=== PATIENT | male | born 1955 | race African-American/Black ===

== ENCOUNTER 2023-05-23 08:43 | Inpatient (IN) | payer OTHER ==
[2023-05-23 09:27] VITALS: BMI 31.1
[2023-05-23] MEDS ORDERED: AMMONIUM LACTATE 12% LOTION 225 GM BOTTLE TP PRN (09:57)
[2023-05-23] MEDS ORDERED: MAGNESIUM HYDROX 2400MG/30ML ORAL SUSPENSION 30 ML CUP PO PRN (09:57)
[2023-05-23] MEDS ORDERED: COLLOIDAL OATMEAL 1 BAR EACH TP PRN (09:57)
[2023-05-23] MEDS ORDERED: POLYETHYLENE GLYCOL (HEALTHYLAX) 3350 17 GM PACKET PO PRN (09:57)
[2023-05-23] MEDS ORDERED: BENZOCAINE/MENTHOL (CHLORASEPTIC ) LOZENGE MM PRN (09:57)
[2023-05-23] MEDS ORDERED: guaiFENesin 600 MG TABLET.ER (FP) PO PRN (09:57)
[2023-05-23] MEDS ORDERED: ACETAMINOPHEN 325 MG TABLET (FP) PO PRN (09:57)
[2023-05-23] MEDS ORDERED: hydrOXYzine PAMOATE 25 MG CAPSULE (FP) PO PRN (09:57)
[2023-05-23] MEDS ORDERED: NICOTINE POLACRILEX 2 MG GUM BUC PRN (09:57)
[2023-05-23] MEDS ORDERED: MAG HYDROX/AL HYDROX/SIMETH 30 ML UNIT-DOSE CUP PO PRN (09:57)
[2023-05-23] MEDS ORDERED: NALOXONE HCL 0.4 MG/ML VIAL IM PRN (09:57)
[2023-05-23] MEDS ORDERED: LOPERAMIDE HCL 2 MG CAPSULE PO PRN (09:57)
[2023-05-23] MEDS ORDERED: NALOXONE HCL (KLOXXADO) 8 MG SPRAY NS PRN (09:57)
[2023-05-23] MEDS ORDERED: BENZONATATE 200 MG CAPSULE PO PRN (09:57)
[2023-05-23] MEDS ORDERED: PRENATAL VITAMINS W/ FOLIC ACID TABLET (FP) PO ONE (11:33)
[2023-05-23] MEDS: PRENATAL VITAMINS W/ FOLIC ACID TABLET (FP) PO SCH (11:36)
[2023-05-23 13:39] LABS: HEMATOCRIT 28.9 % (35.4-49); HEMOGLOBIN 9.7 GM/dL (11.7-16.9); MCH 33.3 pg (25.7-33.7); MCHC 33.7 g/dl (32.0-35.9); MEAN PLT VOLUME 7.6 fl (7.5-11.1); PLATELET COUNT 361 10^3/uL (134-434); RBC 2.92 M/mm3 (4.00-5.60); RDW 14.5 % (11.9-15.9)
[2023-05-23 13:46] LABS: POTASSIUM 4.1 mmol/L (3.5-5.1)
[2023-05-23 13:52] LABS: BLOOD UREA NITROGEN 11.1 mg/dL (7-18); CALCIUM 8.4 mg/dL (8.5-10.1)
[2023-05-23 13:57] LABS: TOT PROT 6.8 g/dl (6.4-8.2)
[2023-05-23 14:48] LABS: SYPHILIS W/ RPR CONF REACTIVE (NONREACTIVE)
[2023-05-23 18:58] LABS: EPI CELLS 17 /uL (0-25.1); HYALINE CASTS 5 /uL (0-3.1); PH,URINE 5.5 (5.0-8.0); URINE APPEARANCE TURBID; URINE BACTERIA 64 /uL (0-1359); URINE BILIRUBIN 1+ (NEGATIVE); URINE COLOR ORANGE; URINE GLUCOSE (UA) NEGATIVE (NEGATIVE); URINE KETONE TRACE (NEGATIVE); URINE LEUK ESTERASE NEGATIVE (NEGATIVE); URINE NITRITE NEGATIVE (NEGATIVE); URINE PROTEIN 1+ (NEGATIVE); URINE RBC 17 /uL (0-23.9); URINE WBC 45 /uL (0-25.8)
[2023-05-23] MEDS: MELATONIN 5 MG TABLETS PO SCH (21:39)
[2023-05-23] MEDS: THIAMINE HCL 100 MG TABLET (FP) PO SCH (21:39)
[2023-05-23] MEDS: ATORVASTATIN CA 10 MG TABLET (FP) PO SCH (21:39)
[2023-05-23] MEDS: ALLOPURINOL 100 MG TABLET (FP) PO SCH (21:39)
[2023-05-23] MEDS: MUPIROCIN 2% TOPICAL OINTMENT 22 GM TUBE TP SCH (22:45)
[2023-05-24] MEDS ORDERED: FENOFIBRIC ACID 45 MG CAP PO SCH (10:00)
[2023-05-24] MEDS ORDERED: PATIENT'S OWN MEDICATION (NON-FORMULARY) (Lisinopril/Hydrochlorothiazide [Lisinopril-Hctz PO SCH (10:00)
[2023-05-24] MEDS ORDERED: TUBERCULIN PPD 5 TU/0.1ML SYRINGE (IN PATIENT USE ONLY) ID ONE (10:00)
[2023-05-24] MEDS: ALLOPURINOL 100 MG TABLET (FP) PO SCH ×2 (10:34→21:27)
[2023-05-24] MEDS: FENOFIBRIC ACID 45 MG CAP PO SCH (10:35)
[2023-05-24] MEDS: PRENATAL VITAMINS W/ FOLIC ACID TABLET (FP) PO SCH (10:36)
[2023-05-24] MEDS: HYDROCHLOROTHIAZIDE 12.5 MG CAPSULE (FP) PO SCH (10:36)
[2023-05-24] MEDS: LISINOPRIL 20 MG TABLET PO SCH (10:38)
[2023-05-24] MEDS: MUPIROCIN 2% TOPICAL OINTMENT 22 GM TUBE TP SCH ×2 (10:38→21:27)
[2023-05-24] MEDS ORDERED: TUBERCULIN PPD 5 TU/0.1ML VIAL ID ONE (10:41)
[2023-05-24] MEDS: ATORVASTATIN CA 10 MG TABLET (FP) PO SCH (21:26)
[2023-05-24] MEDS: THIAMINE HCL 100 MG TABLET (FP) PO SCH (21:26)
[2023-05-24] MEDS: MELATONIN 5 MG TABLETS PO SCH (21:27)
[2023-05-25] MEDS: MUPIROCIN 2% TOPICAL OINTMENT 22 GM TUBE TP SCH ×2 (10:15→21:13)
[2023-05-25] MEDS: PRENATAL VITAMINS W/ FOLIC ACID TABLET (FP) PO SCH (10:16)
[2023-05-25] MEDS: HYDROCHLOROTHIAZIDE 12.5 MG CAPSULE (FP) PO SCH (10:16)
[2023-05-25] MEDS: LISINOPRIL 20 MG TABLET PO SCH (10:16)
[2023-05-25] MEDS: FENOFIBRIC ACID 45 MG CAP PO SCH (10:17)
[2023-05-25] MEDS: ALLOPURINOL 100 MG TABLET (FP) PO SCH ×2 (10:17→21:15)
[2023-05-25] MEDS ORDERED: LACTULOSE 20 GM/30 ML UDC (FOR ORAL USE ONLY) PO ONE (10:56)
[2023-05-25] MEDS ORDERED: DOCUSATE SODIUM 100 MG CAPSULE (FP) PO SCH (11:00)
[2023-05-25] MEDS: SULFAMETHOXAZOLE/TRIMETHOPRIM 800MG/160MG D.S. TABLET PO SCH ×2 (11:37→21:13)
[2023-05-25] MEDS: LIDOCAINE 5% TOPICAL PATCH TP SCH (11:37)
[2023-05-25] MEDS ORDERED: BACLOFEN 10 MG TABLET (FP) PO SCH (14:00)
[2023-05-25] MEDS ORDERED: PENICILLIN G BENZATHINE 2,400,000 UNIT/4 ML PFS IM ONE (18:00)
[2023-05-25] MEDS: MELATONIN 5 MG TABLETS PO SCH (21:12)
[2023-05-25] MEDS: THIAMINE HCL 100 MG TABLET (FP) PO SCH (21:12)
[2023-05-25] MEDS: ATORVASTATIN CA 10 MG TABLET (FP) PO SCH (21:13)
[2023-05-25] MEDS: BACLOFEN 10 MG TABLET (FP) PO PRN (21:13)
[2023-05-25] MEDS: LIDOCAINE PATCH REMOVAL MC SCH (21:14)
[2023-05-26] MEDS: LISINOPRIL 20 MG TABLET PO SCH (10:02)
[2023-05-26] MEDS: HYDROCHLOROTHIAZIDE 12.5 MG CAPSULE (FP) PO SCH (10:02)
[2023-05-26] MEDS: FENOFIBRIC ACID 45 MG CAP PO SCH (10:02)
[2023-05-26] MEDS: ALLOPURINOL 100 MG TABLET (FP) PO SCH ×2 (10:02→21:20)
[2023-05-26] MEDS: SULFAMETHOXAZOLE/TRIMETHOPRIM 800MG/160MG D.S. TABLET PO SCH ×2 (10:03→21:20)
[2023-05-26] MEDS: MUPIROCIN 2% TOPICAL OINTMENT 22 GM TUBE TP SCH ×2 (10:03→21:50)
[2023-05-26] MEDS: LIDOCAINE 5% TOPICAL PATCH TP SCH (10:04)
[2023-05-26] MEDS: PRENATAL VITAMINS W/ FOLIC ACID TABLET (FP) PO SCH (10:04)
[2023-05-26] MEDS: FERROUS SO4 325 MG TABLET (FP) PO SCH (10:05)
[2023-05-26 11:07] LABS: INR 1.24 (0.83-1.09); PROTHROMBIN TIME (PATIENT) 14.4 SEC (9.7-13.0)
[2023-05-26 11:28] LABS: MAGNESIUM 1.5 mg/dL (1.8-2.4)
[2023-05-26] MEDS: MAGNESIUM OXIDE 400 MG TABLET (FP) PO SCH (18:28)
[2023-05-26] MEDS: THIAMINE HCL 100 MG TABLET (FP) PO SCH (21:20)
[2023-05-26] MEDS: MELATONIN 5 MG TABLETS PO SCH (21:20)
[2023-05-26] MEDS: ATORVASTATIN CA 10 MG TABLET (FP) PO SCH (21:20)
[2023-05-26] MEDS: LIDOCAINE PATCH REMOVAL MC SCH (21:49)
[2023-05-27] MEDS: FERROUS SO4 325 MG TABLET (FP) PO SCH (08:53)
[2023-05-27] MEDS: HYDROCHLOROTHIAZIDE 12.5 MG CAPSULE (FP) PO SCH (09:55)
[2023-05-27] MEDS: LISINOPRIL 20 MG TABLET PO SCH (09:55)
[2023-05-27] MEDS: LIDOCAINE 5% TOPICAL PATCH TP SCH (09:55)
[2023-05-27] MEDS: MAGNESIUM OXIDE 400 MG TABLET (FP) PO SCH (09:55)
[2023-05-27] MEDS: FENOFIBRIC ACID 45 MG CAP PO SCH (09:55)
[2023-05-27] MEDS: ALLOPURINOL 100 MG TABLET (FP) PO SCH ×2 (09:55→21:10)
[2023-05-27] MEDS: SULFAMETHOXAZOLE/TRIMETHOPRIM 800MG/160MG D.S. TABLET PO SCH ×2 (09:55→21:10)
[2023-05-27] MEDS: MUPIROCIN 2% TOPICAL OINTMENT 22 GM TUBE TP SCH ×2 (09:56→21:11)
[2023-05-27] MEDS: PRENATAL VITAMINS W/ FOLIC ACID TABLET (FP) PO SCH (09:56)
[2023-05-27] MEDS: ATORVASTATIN CA 10 MG TABLET (FP) PO SCH (21:10)
[2023-05-27] MEDS: MELATONIN 5 MG TABLETS PO SCH (21:10)
[2023-05-27] MEDS: THIAMINE HCL 100 MG TABLET (FP) PO SCH (21:10)
[2023-05-27] MEDS: LIDOCAINE PATCH REMOVAL MC SCH (21:10)
[2023-05-28] MEDS: FERROUS SO4 325 MG TABLET (FP) PO SCH (08:03)
[2023-05-28] MEDS: LIDOCAINE 5% TOPICAL PATCH TP SCH (10:29)
[2023-05-28] MEDS: MUPIROCIN 2% TOPICAL OINTMENT 22 GM TUBE TP SCH ×2 (10:29→21:42)
[2023-05-28] MEDS: ALLOPURINOL 100 MG TABLET (FP) PO SCH ×2 (10:30→21:41)
[2023-05-28] MEDS: HYDROCHLOROTHIAZIDE 12.5 MG CAPSULE (FP) PO SCH (10:30)
[2023-05-28] MEDS: SULFAMETHOXAZOLE/TRIMETHOPRIM 800MG/160MG D.S. TABLET PO SCH ×2 (10:30→21:42)
[2023-05-28] MEDS: FENOFIBRIC ACID 45 MG CAP PO SCH (10:30)
[2023-05-28] MEDS: MAGNESIUM OXIDE 400 MG TABLET (FP) PO SCH (10:30)
[2023-05-28] MEDS: LISINOPRIL 20 MG TABLET PO SCH (10:30)
[2023-05-28] MEDS: PRENATAL VITAMINS W/ FOLIC ACID TABLET (FP) PO SCH (10:31)
[2023-05-28] MEDS: MELATONIN 5 MG TABLETS PO SCH (21:10)
[2023-05-28] MEDS: THIAMINE HCL 100 MG TABLET (FP) PO SCH (21:41)
[2023-05-28] MEDS: ATORVASTATIN CA 10 MG TABLET (FP) PO SCH (21:42)
[2023-05-28] MEDS: LIDOCAINE PATCH REMOVAL MC SCH (23:13)
[2023-05-29] MEDS: FERROUS SO4 325 MG TABLET (FP) PO SCH (07:18)
[2023-05-29] MEDS: ALLOPURINOL 100 MG TABLET (FP) PO SCH ×2 (10:04→21:14)
[2023-05-29] MEDS: MUPIROCIN 2% TOPICAL OINTMENT 22 GM TUBE TP SCH ×2 (10:04→21:13)
[2023-05-29] MEDS: MAGNESIUM OXIDE 400 MG TABLET (FP) PO SCH (10:05)
[2023-05-29] MEDS: HYDROCHLOROTHIAZIDE 12.5 MG CAPSULE (FP) PO SCH (10:05)
[2023-05-29] MEDS: SULFAMETHOXAZOLE/TRIMETHOPRIM 800MG/160MG D.S. TABLET PO SCH ×2 (10:06→21:14)
[2023-05-29] MEDS: LISINOPRIL 20 MG TABLET PO SCH (10:06)
[2023-05-29] MEDS: FENOFIBRIC ACID 45 MG CAP PO SCH (10:07)
[2023-05-29] MEDS: PRENATAL VITAMINS W/ FOLIC ACID TABLET (FP) PO SCH (10:07)
[2023-05-29] MEDS: LIDOCAINE 5% TOPICAL PATCH TP SCH (10:07)
[2023-05-29] MEDS: MELATONIN 5 MG TABLETS PO SCH (21:13)
[2023-05-29] MEDS: THIAMINE HCL 100 MG TABLET (FP) PO SCH (21:13)
[2023-05-29] MEDS: LIDOCAINE PATCH REMOVAL MC SCH (21:13)
[2023-05-29] MEDS: ATORVASTATIN CA 10 MG TABLET (FP) PO SCH (21:14)
[2023-05-30] MEDS: FERROUS SO4 325 MG TABLET (FP) PO SCH (07:13)
[2023-05-30] MEDS: MUPIROCIN 2% TOPICAL OINTMENT 22 GM TUBE TP SCH ×2 (10:03→21:07)
[2023-05-30] MEDS: SULFAMETHOXAZOLE/TRIMETHOPRIM 800MG/160MG D.S. TABLET PO SCH ×2 (10:03→21:06)
[2023-05-30] MEDS: HYDROCHLOROTHIAZIDE 12.5 MG CAPSULE (FP) PO SCH (10:04)
[2023-05-30] MEDS: MAGNESIUM OXIDE 400 MG TABLET (FP) PO SCH (10:04)
[2023-05-30] MEDS: LIDOCAINE 5% TOPICAL PATCH TP SCH (10:04)
[2023-05-30] MEDS: ALLOPURINOL 100 MG TABLET (FP) PO SCH ×2 (10:05→21:06)
[2023-05-30] MEDS: LISINOPRIL 20 MG TABLET PO SCH (10:05)
[2023-05-30] MEDS: PRENATAL VITAMINS W/ FOLIC ACID TABLET (FP) PO SCH (10:05)
[2023-05-30] MEDS: FENOFIBRIC ACID 45 MG CAP PO SCH (10:05)
[2023-05-30] MEDS: MELATONIN 5 MG TABLETS PO SCH (21:06)
[2023-05-30] MEDS: ATORVASTATIN CA 10 MG TABLET (FP) PO SCH (21:06)
[2023-05-30] MEDS: THIAMINE HCL 100 MG TABLET (FP) PO SCH (21:06)
[2023-05-30] MEDS: BACLOFEN 10 MG TABLET (FP) PO PRN (21:06)
[2023-05-30] MEDS: LIDOCAINE PATCH REMOVAL MC SCH (21:07)
[2023-05-31] MEDS: FERROUS SO4 325 MG TABLET (FP) PO SCH (07:05)
[2023-05-31] MEDS: MUPIROCIN 2% TOPICAL OINTMENT 22 GM TUBE TP SCH ×2 (10:05→21:15)
[2023-05-31] MEDS: MAGNESIUM OXIDE 400 MG TABLET (FP) PO SCH (10:06)
[2023-05-31] MEDS: SULFAMETHOXAZOLE/TRIMETHOPRIM 800MG/160MG D.S. TABLET PO SCH ×2 (10:06→21:13)
[2023-05-31] MEDS: FENOFIBRIC ACID 45 MG CAP PO SCH (10:06)
[2023-05-31] MEDS: ALLOPURINOL 100 MG TABLET (FP) PO SCH ×2 (10:06→21:13)
[2023-05-31] MEDS: PRENATAL VITAMINS W/ FOLIC ACID TABLET (FP) PO SCH (10:07)
[2023-05-31] MEDS: LIDOCAINE 5% TOPICAL PATCH TP SCH (10:07)
[2023-05-31] MEDS: HYDROCHLOROTHIAZIDE 12.5 MG CAPSULE (FP) PO SCH (10:10)
[2023-05-31] MEDS: LISINOPRIL 20 MG TABLET PO SCH (10:10)
[2023-05-31] MEDS: ATORVASTATIN CA 10 MG TABLET (FP) PO SCH (21:13)
[2023-05-31] MEDS: MELATONIN 5 MG TABLETS PO SCH (21:14)
[2023-05-31] MEDS: LIDOCAINE PATCH REMOVAL MC SCH (21:14)
[2023-05-31] MEDS: THIAMINE HCL 100 MG TABLET (FP) PO SCH (21:15)
[2023-06-01] MEDS: FERROUS SO4 325 MG TABLET (FP) PO SCH (07:03)
[2023-06-01] MEDS: SULFAMETHOXAZOLE/TRIMETHOPRIM 800MG/160MG D.S. TABLET PO SCH ×2 (09:55→21:18)
[2023-06-01] MEDS: MAGNESIUM OXIDE 400 MG TABLET (FP) PO SCH (09:56)
[2023-06-01] MEDS: LIDOCAINE 5% TOPICAL PATCH TP SCH (09:56)
[2023-06-01] MEDS: MUPIROCIN 2% TOPICAL OINTMENT 22 GM TUBE TP SCH ×2 (09:56→21:17)
[2023-06-01] MEDS: HYDROCHLOROTHIAZIDE 12.5 MG CAPSULE (FP) PO SCH (09:56)
[2023-06-01] MEDS: ALLOPURINOL 100 MG TABLET (FP) PO SCH ×2 (09:56→21:18)
[2023-06-01] MEDS: FENOFIBRIC ACID 45 MG CAP PO SCH (09:57)
[2023-06-01] MEDS: PRENATAL VITAMINS W/ FOLIC ACID TABLET (FP) PO SCH (09:57)
[2023-06-01] MEDS: LISINOPRIL 20 MG TABLET PO SCH (09:57)
[2023-06-01] MEDS ORDERED: PENICILLIN G BENZATHINE 2,400,000 UNIT/4 ML PFS IM ONE (10:00)
[2023-06-01] MEDS: MELATONIN 5 MG TABLETS PO SCH (21:17)
[2023-06-01] MEDS: THIAMINE HCL 100 MG TABLET (FP) PO SCH (21:17)
[2023-06-01] MEDS: LIDOCAINE PATCH REMOVAL MC SCH (21:17)
[2023-06-01] MEDS: ATORVASTATIN CA 10 MG TABLET (FP) PO SCH (21:18)
[2023-06-02] MEDS: IBUPROFEN 600 MG TABLET (FP) PO PRN (06:29)
[2023-06-02] MEDS: FERROUS SO4 325 MG TABLET (FP) PO SCH (07:03)
[2023-06-02] MEDS: PRENATAL VITAMINS W/ FOLIC ACID TABLET (FP) PO SCH (09:55)
[2023-06-02] MEDS: ALLOPURINOL 100 MG TABLET (FP) PO SCH ×2 (09:55→21:22)
[2023-06-02] MEDS: SULFAMETHOXAZOLE/TRIMETHOPRIM 800MG/160MG D.S. TABLET PO SCH ×2 (09:55→21:22)
[2023-06-02] MEDS: FENOFIBRIC ACID 45 MG CAP PO SCH (09:55)
[2023-06-02] MEDS: MUPIROCIN 2% TOPICAL OINTMENT 22 GM TUBE TP SCH ×2 (09:56→21:50)
[2023-06-02] MEDS: LIDOCAINE 5% TOPICAL PATCH TP SCH (09:56)
[2023-06-02] MEDS: MAGNESIUM OXIDE 400 MG TABLET (FP) PO SCH (09:57)
[2023-06-02] MEDS: HYDROCHLOROTHIAZIDE 12.5 MG CAPSULE (FP) PO SCH (09:57)
[2023-06-02] MEDS: LISINOPRIL 20 MG TABLET PO SCH (09:57)
[2023-06-02] MEDS: LACTULOSE 20 GM/30 ML UDC (FOR ORAL USE ONLY) PO PRN (10:08)
[2023-06-02] MEDS: ATORVASTATIN CA 10 MG TABLET (FP) PO SCH (21:22)
[2023-06-02] MEDS: THIAMINE HCL 100 MG TABLET (FP) PO SCH (21:22)
[2023-06-02] MEDS: IBUPROFEN 400 MG TABLET (FP) PO PRN (21:23)
[2023-06-02] MEDS: MELATONIN 5 MG TABLETS PO SCH (21:23)
[2023-06-02] MEDS: LIDOCAINE PATCH REMOVAL MC SCH (21:51)
[2023-06-03] MEDS: FERROUS SO4 325 MG TABLET (FP) PO SCH (07:18)
[2023-06-03] MEDS: SULFAMETHOXAZOLE/TRIMETHOPRIM 800MG/160MG D.S. TABLET PO SCH ×2 (09:54→21:12)
[2023-06-03] MEDS: MUPIROCIN 2% TOPICAL OINTMENT 22 GM TUBE TP SCH ×2 (09:54→21:12)
[2023-06-03] MEDS: HYDROCHLOROTHIAZIDE 12.5 MG CAPSULE (FP) PO SCH (09:55)
[2023-06-03] MEDS: LIDOCAINE 5% TOPICAL PATCH TP SCH (09:55)
[2023-06-03] MEDS: MAGNESIUM OXIDE 400 MG TABLET (FP) PO SCH (09:55)
[2023-06-03] MEDS: LISINOPRIL 20 MG TABLET PO SCH (09:55)
[2023-06-03] MEDS: FENOFIBRIC ACID 45 MG CAP PO SCH (09:56)
[2023-06-03] MEDS: PRENATAL VITAMINS W/ FOLIC ACID TABLET (FP) PO SCH (09:56)
[2023-06-03] MEDS: ALLOPURINOL 100 MG TABLET (FP) PO SCH ×2 (09:56→21:12)
[2023-06-03] MEDS: ATORVASTATIN CA 10 MG TABLET (FP) PO SCH (21:12)
[2023-06-03] MEDS: MELATONIN 5 MG TABLETS PO SCH (21:12)
[2023-06-03] MEDS: THIAMINE HCL 100 MG TABLET (FP) PO SCH (21:12)
[2023-06-03] MEDS: LIDOCAINE PATCH REMOVAL MC SCH (21:12)
[2023-06-03] MEDS: BACLOFEN 10 MG TABLET (FP) PO PRN (21:13)
[2023-06-04] MEDS: FERROUS SO4 325 MG TABLET (FP) PO SCH (07:04)
[2023-06-04] MEDS: FENOFIBRIC ACID 45 MG CAP PO SCH (09:41)
[2023-06-04] MEDS: MAGNESIUM OXIDE 400 MG TABLET (FP) PO SCH (09:41)
[2023-06-04] MEDS: LISINOPRIL 20 MG TABLET PO SCH (09:41)
[2023-06-04] MEDS: ALLOPURINOL 100 MG TABLET (FP) PO SCH ×2 (09:41→21:10)
[2023-06-04] MEDS: SULFAMETHOXAZOLE/TRIMETHOPRIM 800MG/160MG D.S. TABLET PO SCH ×2 (09:41→21:10)
[2023-06-04] MEDS: HYDROCHLOROTHIAZIDE 12.5 MG CAPSULE (FP) PO SCH (09:41)
[2023-06-04] MEDS: LIDOCAINE 5% TOPICAL PATCH TP SCH (09:43)
[2023-06-04] MEDS: MUPIROCIN 2% TOPICAL OINTMENT 22 GM TUBE TP SCH ×2 (09:43→21:10)
[2023-06-04] MEDS: PRENATAL VITAMINS W/ FOLIC ACID TABLET (FP) PO SCH (10:00)
[2023-06-04] MEDS: ATORVASTATIN CA 10 MG TABLET (FP) PO SCH (21:10)
[2023-06-04] MEDS: THIAMINE HCL 100 MG TABLET (FP) PO SCH (21:10)
[2023-06-04] MEDS: LIDOCAINE PATCH REMOVAL MC SCH (21:10)
[2023-06-04] MEDS: BACLOFEN 10 MG TABLET (FP) PO PRN (21:10)
[2023-06-04] MEDS: MELATONIN 5 MG TABLETS PO SCH (21:10)
[2023-06-05] MEDS: FERROUS SO4 325 MG TABLET (FP) PO SCH (07:10)
[2023-06-05] MEDS: MUPIROCIN 2% TOPICAL OINTMENT 22 GM TUBE TP SCH ×2 (10:28→21:17)
[2023-06-05] MEDS: LIDOCAINE 5% TOPICAL PATCH TP SCH (10:29)
[2023-06-05] MEDS: HYDROCHLOROTHIAZIDE 12.5 MG CAPSULE (FP) PO SCH (10:29)
[2023-06-05] MEDS: FENOFIBRIC ACID 45 MG CAP PO SCH (10:30)
[2023-06-05] MEDS: ALLOPURINOL 100 MG TABLET (FP) PO SCH ×2 (10:30→21:16)
[2023-06-05] MEDS: NALTREXONE HCL 50 MG TABLET PO SCH (10:31)
[2023-06-05] MEDS: PRENATAL VITAMINS W/ FOLIC ACID TABLET (FP) PO SCH (10:31)
[2023-06-05] MEDS: LISINOPRIL 20 MG TABLET PO SCH (10:33)
[2023-06-05] MEDS: CHOLECALCIFEROL (VIT D3) 400 UNIT (10 MCG) TABLET PO SCH (11:09)
[2023-06-05] MEDS: MAGNESIUM OXIDE 400 MG TABLET (FP) PO SCH (11:14)
[2023-06-05] MEDS: THIAMINE HCL 100 MG TABLET (FP) PO SCH (21:16)
[2023-06-05] MEDS: ATORVASTATIN CA 10 MG TABLET (FP) PO SCH (21:16)
[2023-06-05] MEDS: MELATONIN 5 MG TABLETS PO SCH (21:16)
[2023-06-05] MEDS: LIDOCAINE PATCH REMOVAL MC SCH (21:17)
[2023-06-05] MEDS: IBUPROFEN 400 MG TABLET (FP) PO PRN (21:18)
[2023-06-06] MEDS: FERROUS SO4 325 MG TABLET (FP) PO SCH (07:16)
[2023-06-06] MEDS: LACTULOSE 20 GM/30 ML UDC (FOR ORAL USE ONLY) PO PRN (07:40)
[2023-06-06] MEDS: MUPIROCIN 2% TOPICAL OINTMENT 22 GM TUBE TP SCH ×2 (09:55→21:26)
[2023-06-06] MEDS: MAGNESIUM OXIDE 400 MG TABLET (FP) PO SCH (09:55)
[2023-06-06] MEDS: HYDROCHLOROTHIAZIDE 12.5 MG CAPSULE (FP) PO SCH (09:55)
[2023-06-06] MEDS: PRENATAL VITAMINS W/ FOLIC ACID TABLET (FP) PO SCH (09:55)
[2023-06-06] MEDS: LIDOCAINE 5% TOPICAL PATCH TP SCH (09:55)
[2023-06-06] MEDS: ALLOPURINOL 100 MG TABLET (FP) PO SCH ×2 (09:56→21:25)
[2023-06-06] MEDS: LISINOPRIL 20 MG TABLET PO SCH (09:56)
[2023-06-06] MEDS: FENOFIBRIC ACID 45 MG CAP PO SCH (09:56)
[2023-06-06] MEDS: NALTREXONE HCL 50 MG TABLET PO SCH (09:56)
[2023-06-06] MEDS: CHOLECALCIFEROL (VIT D3) 400 UNIT (10 MCG) TABLET PO SCH (10:46)
[2023-06-06] MEDS: ATORVASTATIN CA 10 MG TABLET (FP) PO SCH (21:25)
[2023-06-06] MEDS: THIAMINE HCL 100 MG TABLET (FP) PO SCH (21:25)
[2023-06-06] MEDS: MELATONIN 5 MG TABLETS PO SCH (21:25)
[2023-06-06] MEDS: LIDOCAINE PATCH REMOVAL MC SCH (21:26)
[2023-06-07] MEDS: FERROUS SO4 325 MG TABLET (FP) PO SCH (07:07)
[2023-06-07] MEDS: PRENATAL VITAMINS W/ FOLIC ACID TABLET (FP) PO SCH (10:17)
[2023-06-07] MEDS: MUPIROCIN 2% TOPICAL OINTMENT 22 GM TUBE TP SCH ×2 (10:18→21:09)
[2023-06-07] MEDS: FENOFIBRIC ACID 45 MG CAP PO SCH (10:19)
[2023-06-07] MEDS: CHOLECALCIFEROL (VIT D3) 400 UNIT (10 MCG) TABLET PO SCH (10:19)
[2023-06-07] MEDS: MAGNESIUM OXIDE 400 MG TABLET (FP) PO SCH (10:19)
[2023-06-07] MEDS: ALLOPURINOL 100 MG TABLET (FP) PO SCH ×2 (10:19→21:10)
[2023-06-07] MEDS: NALTREXONE HCL 50 MG TABLET PO SCH (10:19)
[2023-06-07] MEDS: LISINOPRIL 20 MG TABLET PO SCH (10:19)
[2023-06-07] MEDS: HYDROCHLOROTHIAZIDE 12.5 MG CAPSULE (FP) PO SCH (10:21)
[2023-06-07] MEDS: LIDOCAINE 5% TOPICAL PATCH TP SCH (10:21)
[2023-06-07] MEDS: LIDOCAINE PATCH REMOVAL MC SCH (21:08)
[2023-06-07] MEDS: ATORVASTATIN CA 10 MG TABLET (FP) PO SCH (21:10)
[2023-06-07] MEDS: THIAMINE HCL 100 MG TABLET (FP) PO SCH (21:10)
[2023-06-07] MEDS: MELATONIN 5 MG TABLETS PO SCH (21:10)
[2023-06-07] MEDS: BACLOFEN 10 MG TABLET (FP) PO PRN (21:10)
[2023-06-08] MEDS: FERROUS SO4 325 MG TABLET (FP) PO SCH (07:04)
[2023-06-08] MEDS ORDERED: PENICILLIN G BENZATHINE 2,400,000 UNIT/4 ML PFS IM ONE (10:00)
[2023-06-08] MEDS: MUPIROCIN 2% TOPICAL OINTMENT 22 GM TUBE TP SCH ×2 (10:09→21:14)
[2023-06-08] MEDS: ALLOPURINOL 100 MG TABLET (FP) PO SCH ×2 (10:10→21:14)
[2023-06-08] MEDS: NALTREXONE HCL 50 MG TABLET PO SCH (10:10)
[2023-06-08] MEDS: MAGNESIUM OXIDE 400 MG TABLET (FP) PO SCH (10:10)
[2023-06-08] MEDS: CHOLECALCIFEROL (VIT D3) 400 UNIT (10 MCG) TABLET PO SCH (10:10)
[2023-06-08] MEDS: FENOFIBRIC ACID 45 MG CAP PO SCH (10:10)
[2023-06-08] MEDS: LISINOPRIL 20 MG TABLET PO SCH (10:10)
[2023-06-08] MEDS: PRENATAL VITAMINS W/ FOLIC ACID TABLET (FP) PO SCH (10:11)
[2023-06-08] MEDS: LIDOCAINE 5% TOPICAL PATCH TP SCH (10:11)
[2023-06-08] MEDS: HYDROCHLOROTHIAZIDE 12.5 MG CAPSULE (FP) PO SCH (10:11)
[2023-06-08] MEDS ORDERED: LACTULOSE 20 GM/30 ML UDC (FOR ORAL USE ONLY) PO PRN (11:12)
[2023-06-08] MEDS: THIAMINE HCL 100 MG TABLET (FP) PO SCH (21:14)
[2023-06-08] MEDS: LIDOCAINE PATCH REMOVAL MC SCH (21:14)
[2023-06-08] MEDS: MELATONIN 5 MG TABLETS PO SCH (21:14)
[2023-06-08] MEDS: ATORVASTATIN CA 10 MG TABLET (FP) PO SCH (21:14)
[2023-06-08] MEDS: BACLOFEN 10 MG TABLET (FP) PO PRN (21:14)
[2023-06-09] MEDS: FERROUS SO4 325 MG TABLET (FP) PO SCH (07:22)
[2023-06-09] MEDS: ALLOPURINOL 100 MG TABLET (FP) PO SCH ×2 (10:11→21:25)
[2023-06-09] MEDS: NALTREXONE HCL 50 MG TABLET PO SCH (10:11)
[2023-06-09] MEDS: MAGNESIUM OXIDE 400 MG TABLET (FP) PO SCH (10:11)
[2023-06-09] MEDS: PRENATAL VITAMINS W/ FOLIC ACID TABLET (FP) PO SCH (10:11)
[2023-06-09] MEDS: LIDOCAINE 5% TOPICAL PATCH TP SCH (10:12)
[2023-06-09] MEDS: FENOFIBRIC ACID 45 MG CAP PO SCH (10:12)
[2023-06-09] MEDS: CHOLECALCIFEROL (VIT D3) 400 UNIT (10 MCG) TABLET PO SCH (10:13)
[2023-06-09] MEDS: LISINOPRIL 20 MG TABLET PO SCH (10:13)
[2023-06-09] MEDS: MUPIROCIN 2% TOPICAL OINTMENT 22 GM TUBE TP SCH ×2 (10:13→21:26)
[2023-06-09] MEDS: THIAMINE HCL 100 MG TABLET (FP) PO SCH (21:25)
[2023-06-09] MEDS: BACLOFEN 10 MG TABLET (FP) PO PRN (21:25)
[2023-06-09] MEDS: MELATONIN 5 MG TABLETS PO SCH (21:25)
[2023-06-09] MEDS: ATORVASTATIN CA 10 MG TABLET (FP) PO SCH (21:25)
[2023-06-09] MEDS: LIDOCAINE PATCH REMOVAL MC SCH (21:25)
[2023-06-09] MEDS: IBUPROFEN 600 MG TABLET (FP) PO PRN (21:26)
[2023-06-10] MEDS: FERROUS SO4 325 MG TABLET (FP) PO SCH (07:33)
[2023-06-10] MEDS ORDERED: NALTREXONE MICROSPHERES (VIVITROL) 380 MG DISP.SYRIN IM ONE (10:00)
[2023-06-10] MEDS: MAGNESIUM OXIDE 400 MG TABLET (FP) PO SCH (10:02)
[2023-06-10] MEDS: ALLOPURINOL 100 MG TABLET (FP) PO SCH ×2 (10:02→21:44)
[2023-06-10] MEDS: LIDOCAINE 5% TOPICAL PATCH TP SCH (10:02)
[2023-06-10] MEDS: FENOFIBRIC ACID 45 MG CAP PO SCH (10:03)
[2023-06-10] MEDS: LISINOPRIL 20 MG TABLET PO SCH (10:03)
[2023-06-10] MEDS: PRENATAL VITAMINS W/ FOLIC ACID TABLET (FP) PO SCH (10:03)
[2023-06-10] MEDS: CHOLECALCIFEROL (VIT D3) 400 UNIT (10 MCG) TABLET PO SCH (10:03)
[2023-06-10] MEDS: MUPIROCIN 2% TOPICAL OINTMENT 22 GM TUBE TP SCH ×2 (10:04→21:44)
[2023-06-10] MEDS: MELATONIN 5 MG TABLETS PO SCH (21:44)
[2023-06-10] MEDS: BACLOFEN 10 MG TABLET (FP) PO PRN (21:44)
[2023-06-10] MEDS: ATORVASTATIN CA 10 MG TABLET (FP) PO SCH (21:44)
[2023-06-10] MEDS: THIAMINE HCL 100 MG TABLET (FP) PO SCH (21:45)
[2023-06-10] MEDS: LIDOCAINE PATCH REMOVAL MC SCH (22:19)
[2023-06-11] MEDS: BACLOFEN 10 MG TABLET (FP) PO PRN (06:05)
[2023-06-11] MEDS: FERROUS SO4 325 MG TABLET (FP) PO SCH (07:45)
[2023-06-11] MEDS: ALLOPURINOL 100 MG TABLET (FP) PO SCH ×2 (09:41→21:32)
[2023-06-11] MEDS: LIDOCAINE 5% TOPICAL PATCH TP SCH (09:41)
[2023-06-11] MEDS: CHOLECALCIFEROL (VIT D3) 400 UNIT (10 MCG) TABLET PO SCH (09:42)
[2023-06-11] MEDS: PRENATAL VITAMINS W/ FOLIC ACID TABLET (FP) PO SCH (09:42)
[2023-06-11] MEDS: MUPIROCIN 2% TOPICAL OINTMENT 22 GM TUBE TP SCH ×2 (09:42→22:35)
[2023-06-11] MEDS: MAGNESIUM OXIDE 400 MG TABLET (FP) PO SCH (09:42)
[2023-06-11] MEDS: FENOFIBRIC ACID 45 MG CAP PO SCH (09:43)
[2023-06-11] MEDS: LISINOPRIL 20 MG TABLET PO SCH (09:44)
[2023-06-11] MEDS: THIAMINE HCL 100 MG TABLET (FP) PO SCH (21:32)
[2023-06-11] MEDS: ATORVASTATIN CA 10 MG TABLET (FP) PO SCH (21:32)
[2023-06-11] MEDS: LIDOCAINE PATCH REMOVAL MC SCH (21:32)
[2023-06-11] MEDS: MELATONIN 5 MG TABLETS PO SCH (21:32)
[2023-06-12 00:50] LABS: PH,URINE 6.5 (5.0-8.0); URINE APPEARANCE Clear; URINE BILIRUBIN Negative (NEGATIVE); URINE COLOR Yellow; URINE GLUCOSE (UA) Trace (NEGATIVE); URINE KETONE Negative (NEGATIVE); URINE LEUK ESTERASE Negative (NEGATIVE); URINE NITRITE Negative (NEGATIVE); URINE PROTEIN 1+ (NEGATIVE); URINE UROBILINOGEN 0.2 mg/dL (0.2-1.0)
[2023-06-12 03:16] LABS: EPI CELLS 17.3 /uL (0-25.1); URINE BACTERIA 29.1 /uL (0-1359); URINE RBC 16.3 /uL (0-23.9); URINE WBC 16.5 /uL (0-25.8)
[2023-06-12] MEDS: FERROUS SO4 325 MG TABLET (FP) PO SCH (07:18)
[2023-06-12] MEDS: LIDOCAINE 5% TOPICAL PATCH TP SCH (10:03)
[2023-06-12] MEDS: MUPIROCIN 2% TOPICAL OINTMENT 22 GM TUBE TP SCH ×2 (10:03→21:32)
[2023-06-12] MEDS: MAGNESIUM OXIDE 400 MG TABLET (FP) PO SCH (10:04)
[2023-06-12] MEDS: ALLOPURINOL 100 MG TABLET (FP) PO SCH ×2 (10:04→21:33)
[2023-06-12] MEDS: LISINOPRIL 20 MG TABLET PO SCH (10:04)
[2023-06-12] MEDS: PRENATAL VITAMINS W/ FOLIC ACID TABLET (FP) PO SCH (10:04)
[2023-06-12] MEDS: CHOLECALCIFEROL (VIT D3) 400 UNIT (10 MCG) TABLET PO SCH (10:04)
[2023-06-12] MEDS: FENOFIBRIC ACID 45 MG CAP PO SCH (10:04)
[2023-06-12] MEDS: LIDOCAINE PATCH REMOVAL MC SCH (21:32)
[2023-06-12] MEDS: MELATONIN 5 MG TABLETS PO SCH (21:33)
[2023-06-12] MEDS: THIAMINE HCL 100 MG TABLET (FP) PO SCH (21:33)
[2023-06-12] MEDS: ATORVASTATIN CA 10 MG TABLET (FP) PO SCH (21:33)
[2023-06-13] MEDS: FERROUS SO4 325 MG TABLET (FP) PO SCH (07:40)
[2023-06-13] MEDS: LIDOCAINE 5% TOPICAL PATCH TP SCH (10:13)
[2023-06-13] MEDS: ALLOPURINOL 100 MG TABLET (FP) PO SCH ×2 (10:13→23:20)
[2023-06-13] MEDS: FENOFIBRIC ACID 45 MG CAP PO SCH (10:14)
[2023-06-13] MEDS: PRENATAL VITAMINS W/ FOLIC ACID TABLET (FP) PO SCH (10:14)
[2023-06-13] MEDS: CHOLECALCIFEROL (VIT D3) 400 UNIT (10 MCG) TABLET PO SCH (10:14)
[2023-06-13] MEDS: MUPIROCIN 2% TOPICAL OINTMENT 22 GM TUBE TP SCH ×2 (10:14→23:09)
[2023-06-13] MEDS: LISINOPRIL 20 MG TABLET PO SCH (10:15)
[2023-06-13] MEDS: MAGNESIUM OXIDE 400 MG TABLET (FP) PO SCH (10:16)
[2023-06-13] MEDS: IBUPROFEN 400 MG TABLET (FP) PO PRN (10:16)
[2023-06-13] MEDS: ATORVASTATIN CA 10 MG TABLET (FP) PO SCH (23:07)
[2023-06-13] MEDS: MELATONIN 5 MG TABLETS PO SCH (23:08)
[2023-06-13] MEDS: THIAMINE HCL 100 MG TABLET (FP) PO SCH (23:08)
[2023-06-13] MEDS: BACLOFEN 10 MG TABLET (FP) PO PRN (23:08)
[2023-06-13] MEDS: LIDOCAINE PATCH REMOVAL MC SCH (23:16)
[2023-06-14] MEDS: FERROUS SO4 325 MG TABLET (FP) PO SCH (07:07)
[2023-06-14] MEDS: LIDOCAINE 5% TOPICAL PATCH TP SCH (09:14)
[2023-06-14] MEDS: FENOFIBRIC ACID 45 MG CAP PO SCH (09:15)
[2023-06-14] MEDS: PRENATAL VITAMINS W/ FOLIC ACID TABLET (FP) PO SCH (09:15)
[2023-06-14] MEDS: CHOLECALCIFEROL (VIT D3) 400 UNIT (10 MCG) TABLET PO SCH (09:15)
[2023-06-14] MEDS: LISINOPRIL 20 MG TABLET PO SCH (09:15)
[2023-06-14] MEDS: MAGNESIUM OXIDE 400 MG TABLET (FP) PO SCH (09:15)
[2023-06-14] MEDS: ALLOPURINOL 100 MG TABLET (FP) PO SCH ×2 (09:15→22:07)
[2023-06-14] MEDS: IBUPROFEN 600 MG TABLET (FP) PO PRN ×3 (09:20→22:08)
[2023-06-14] MEDS: MUPIROCIN 2% TOPICAL OINTMENT 22 GM TUBE TP SCH ×2 (09:33→22:07)
[2023-06-14] MEDS: BACLOFEN 10 MG TABLET (FP) PO PRN (11:14)
[2023-06-14] MEDS: ATORVASTATIN CA 10 MG TABLET (FP) PO SCH (22:07)
[2023-06-14] MEDS: MELATONIN 5 MG TABLETS PO SCH (22:07)
[2023-06-14] MEDS: LIDOCAINE PATCH REMOVAL MC SCH (22:07)
[2023-06-14] MEDS: THIAMINE HCL 100 MG TABLET (FP) PO SCH (22:07)
[2023-06-15] MEDS: FERROUS SO4 325 MG TABLET (FP) PO SCH (07:52)
[2023-06-15 08:58] VITALS: RESP 18
[2023-06-15] MEDS: MUPIROCIN 2% TOPICAL OINTMENT 22 GM TUBE TP SCH (09:22)
[2023-06-15] MEDS: LIDOCAINE 5% TOPICAL PATCH TP SCH (09:22)
[2023-06-15] MEDS: ALLOPURINOL 100 MG TABLET (FP) PO SCH (09:23)
[2023-06-15] MEDS: CHOLECALCIFEROL (VIT D3) 400 UNIT (10 MCG) TABLET PO SCH (09:23)
[2023-06-15] MEDS: PRENATAL VITAMINS W/ FOLIC ACID TABLET (FP) PO SCH (09:23)
[2023-06-15] MEDS: MAGNESIUM OXIDE 400 MG TABLET (FP) PO SCH (09:23)
[2023-06-15] MEDS: FENOFIBRIC ACID 45 MG CAP PO SCH (09:24)
[2023-06-15] MEDS: LISINOPRIL 20 MG TABLET PO SCH (10:22)
[2023-06-15] MEDS: BACLOFEN 10 MG TABLET (FP) PO PRN (11:29)
[2023-06-15 14:42] VITALS: BP 125/78; PULSE 85; TEMP 97.4
== END 2023-06-15 23:55 | disposition short-term general hospital (02) | DRG 895 ==
LOC: YASAS 08:43 → Y3E 12:42 → UNDOADMIN 12:42 → Y3E 16:19
PROVIDERS: ADMIT Allergy & Immunology; ATTEND Psychiatry & Neurology Pain Medicine
PROC: HZ42ZZZ Group Counseling for Substance Abuse Treatment, Cognitive-Behavioral (ICD-10-PCS; principal; 2023-06-13)
DX: F10.20 Alcohol dependence, uncomplicated (principal); N39.0 Urinary tract infection, site not specified; F17.210 Nicotine dependence, cigarettes, uncomplicated; D64.9 Anemia, unspecified; E78.1 Pure hyperglyceridemia; I10 Essential (primary) hypertension; K59.00 Constipation, unspecified; R26.2 Difficulty in walking, not elsewhere classified; R00.0 Tachycardia, unspecified; M54.50 Low back pain, unspecified; G89.29 Other chronic pain; M62.830 Muscle spasm of back; Z62.810 Personal history of physical and sexual abuse in childhood; Z99.89 Dependence on other enabling machines and devices; Z59.02 Unsheltered homelessness; W19.XXXA Unspecified fall, initial encounter; Y92.230 Patient room in hospital as the place of occurrence of the external cause; Y99.9 Unspecified external cause status
CPT/HCPCS: 36415; 70450-TC; 72131-TC; 80053; 81003; 82140; 82272; 82607; 82652; 82746; 83735; 85027; 85610; 86593; 86780; 86803; 87635; 87811; 93005; 93010; 99281-25; J0475; J2315

== ENCOUNTER 2023-06-15 15:42 | Inpatient (IN) | payer OTHER ==
[2023-06-15 18:33] LABS: EPI CELLS 10 /uL (0-25.1); HYALINE CASTS 1 /uL (0-3.1); PH,URINE 5.5 (5.0-8.0); URINE APPEARANCE CLEAR; URINE BACTERIA 40 /uL (0-1359); URINE BILIRUBIN NEGATIVE (NEGATIVE); URINE COLOR YELLOW; URINE GLUCOSE (UA) NEGATIVE (NEGATIVE); URINE KETONE NEGATIVE (NEGATIVE); URINE LEUK ESTERASE NEGATIVE (NEGATIVE); URINE NITRITE NEGATIVE (NEGATIVE); URINE PROTEIN 1+ (NEGATIVE); URINE RBC 20 /uL (0-23.9); URINE UROBILINOGEN 0.2 mg/dL (0.2-1.0); URINE WBC 18 /uL (0-25.8)
[2023-06-15 18:59] LABS: BASO % 0.3 % (0-2.0); EOS % 0.5 % (0-4.5); HEMATOCRIT 27.1 % (35.4-49); HEMOGLOBIN 9.3 GM/dL (11.7-16.9); LYMPH % 4.2 % (8-40); MCH 32.6 pg (25.7-33.7); MCHC 34.4 g/dl (32.0-35.9); MEAN CELL VOLUME 94.7 fl (80-96); MEAN PLT VOLUME 6.4 fl (7.5-11.1); MONO % 6.8 % (3.8-10.2); NEUT % 88.2 % (42.8-82.8); PLATELET COUNT 506 10^3/uL (134-434); RBC 2.86 M/mm3 (4.00-5.60); RDW 15.3 % (11.9-15.9); WHITE BLOOD COUNT 14.5 K/mm3 (4.0-10.0)
[2023-06-15 19:19] LABS: POTASSIUM 4.8 mmol/L (3.5-5.1)
[2023-06-15 19:21] LABS: ALBUMIN 2.7 g/dl (3.4-5.0); BLOOD UREA NITROGEN 31.6 mg/dL (7-18); CALCIUM 9.2 mg/dL (8.5-10.1)
[2023-06-15 19:24] LABS: CREATININE 1.2 mg/dL (0.55-1.3)
[2023-06-15] MEDS ORDERED: ACETAMINOPHEN 1000 MG/100 ML BAG IVPB ONE (19:25)
[2023-06-15 19:26] LABS: BILIRUBIN,TOTAL 0.3 mg/dL (0.2-1); TOT PROT 7.4 g/dl (6.4-8.2)
[2023-06-15] MEDS ORDERED: ACETAMINOPHEN INJECTION 100 ML IVPB ONE (20:08)
[2023-06-15] MEDS ORDERED: LACTATED RINGERS SOLUTION 1000 ML INFUS.BAG IV ONE (20:13)
[2023-06-15] MEDS ORDERED: KETOROLAC TROMETHAMINE 15 MG/ML VIAL IVPUSH ONE (20:21)
[2023-06-15] MEDS ORDERED: KETOROLAC TROMETHAMINE 15 MG/ML VIAL ONE (20:45)
[2023-06-16] MEDS ORDERED: ACETAMINOPHEN 1000 MG/100 ML BAG IVPB PRN (00:59)
[2023-06-16] MEDS ORDERED: CEFTRIAXONE 1 GM in DEXTROSE 5%-WATER - 50 ML IVPB ONE (01:15)
[2023-06-16] MEDS ORDERED: CEFTRIAXONE 1 GM/50 ML BAG ONE (01:28)
[2023-06-16] MEDS: SODIUM CHLORIDE 1,000 ML IV SCH (01:39)
[2023-06-16 02:56] VITALS: BMI 25.8
[2023-06-16] MEDS: traMADol HCL 50 MG TABLET PO PRN ×2 (09:47→20:35)
[2023-06-16] MEDS: ALLOPURINOL 100 MG TABLET (FP) PO SCH ×2 (09:49→21:27)
[2023-06-16] MEDS: ENOXAPARIN NA (PORCINE) 40 MG/0.4 ML DISP.SYRIN SQ SCH (09:49)
[2023-06-16] MEDS: NICOTINE 7 MG/24 HOURS TOPICAL PATCH TD SCH ×2 (09:49→09:53)
[2023-06-16] MEDS: FENOFIBRIC ACID 45 MG CAP PO SCH (09:49)
[2023-06-16] MEDS ORDERED: ACETAMINOPHEN 325 MG TABLET (FP) PO PRN (14:16)
[2023-06-16] MEDS: GABAPENTIN 100 MG CAPSULE PO SCH ×2 (14:42→21:27)
[2023-06-16] MEDS: ATORVASTATIN CA 10 MG TABLET (FP) PO SCH (21:27)
[2023-06-17] MEDS: SODIUM CHLORIDE 1,000 ML IV SCH (02:28)
[2023-06-17] MEDS: GABAPENTIN 100 MG CAPSULE PO SCH ×3 (06:20→22:01)
[2023-06-17 09:04] LABS: HEMATOCRIT 23.9 % (35.4-49); HEMOGLOBIN 8.4 GM/dL (11.7-16.9); MCHC 35.1 g/dl (32.0-35.9); MEAN CELL VOLUME 93.9 fl (80-96); MEAN PLT VOLUME 6.2 fl (7.5-11.1); PLATELET COUNT 453 10^3/uL (134-434); RBC 2.55 M/mm3 (4.00-5.60); RDW 15.3 % (11.9-15.9); WHITE BLOOD COUNT 9.2 K/mm3 (4.0-10.0)
[2023-06-17 09:24] LABS: POTASSIUM 4.8 mmol/L (3.5-5.1)
[2023-06-17 09:38] LABS: ALBUMIN 2.3 g/dl (3.4-5.0); BLOOD UREA NITROGEN 26.2 mg/dL (7-18); CALCIUM 8.6 mg/dL (8.5-10.1); MAGNESIUM 1.9 mg/dL (1.8-2.4)
[2023-06-17 09:41] LABS: CREATININE 1.1 mg/dL (0.55-1.3); PHOSPHOROUS 4.1 mg/dL (2.5-4.9)
[2023-06-17 09:43] LABS: BILIRUBIN,TOTAL 0.3 mg/dL (0.2-1); TOT PROT 6.6 g/dl (6.4-8.2)
[2023-06-17] MEDS: ENOXAPARIN NA (PORCINE) 40 MG/0.4 ML DISP.SYRIN SQ SCH (09:44)
[2023-06-17] MEDS: FENOFIBRIC ACID 45 MG CAP PO SCH (09:45)
[2023-06-17] MEDS: ALLOPURINOL 100 MG TABLET (FP) PO SCH ×2 (09:45→22:01)
[2023-06-17] MEDS: NICOTINE 7 MG/24 HOURS TOPICAL PATCH TD SCH (09:48)
[2023-06-17] MEDS: traMADol HCL 50 MG TABLET PO PRN (09:51)
[2023-06-17] MEDS: ATORVASTATIN CA 10 MG TABLET (FP) PO SCH (22:01)
[2023-06-18] MEDS: traMADol HCL 50 MG TABLET PO PRN (01:38)
[2023-06-18] MEDS: GABAPENTIN 100 MG CAPSULE PO SCH ×3 (05:45→22:22)
[2023-06-18 09:26] LABS: BASO % 0.7 % (0-2.0); EOS % 1.8 % (0-4.5); HEMATOCRIT 25.2 % (35.4-49); HEMOGLOBIN 8.9 GM/dL (11.7-16.9); LYMPH % 11.3 % (8-40); MCH 32.9 pg (25.7-33.7); MCHC 35.4 g/dl (32.0-35.9); MEAN CELL VOLUME 93.1 fl (80-96); MONO % 9.2 % (3.8-10.2); PLATELET COUNT 444 10^3/uL (134-434); RBC 2.71 M/mm3 (4.00-5.60); RDW 15.3 % (11.9-15.9); WHITE BLOOD COUNT 8.8 K/mm3 (4.0-10.0)
[2023-06-18] MEDS: ALLOPURINOL 100 MG TABLET (FP) PO SCH ×2 (09:45→22:22)
[2023-06-18] MEDS: ENOXAPARIN NA (PORCINE) 40 MG/0.4 ML DISP.SYRIN SQ SCH (09:45)
[2023-06-18] MEDS: NICOTINE 7 MG/24 HOURS TOPICAL PATCH TD SCH (09:46)
[2023-06-18 09:48] LABS: POTASSIUM 4.3 mmol/L (3.5-5.1)
[2023-06-18] MEDS: FENOFIBRIC ACID 45 MG CAP PO SCH (09:49)
[2023-06-18 10:03] LABS: ALBUMIN 2.4 g/dl (3.4-5.0); BLOOD UREA NITROGEN 19.8 mg/dL (7-18); CALCIUM 8.7 mg/dL (8.5-10.1); MAGNESIUM 1.8 mg/dL (1.8-2.4)
[2023-06-18 10:06] LABS: PHOSPHOROUS 3.4 mg/dL (2.5-4.9)
[2023-06-18 10:08] LABS: BILIRUBIN,TOTAL 0.3 mg/dL (0.2-1); TOT PROT 6.9 g/dl (6.4-8.2)
[2023-06-18] MEDS ORDERED: DEXAMETHASONE SOD PHOSPHATE 10 MG/1 ML VIAL IVPUSH ONE (13:00)
[2023-06-18] MEDS ORDERED: CEFTRIAXONE 2 GM in DEXTROSE 5%-WATER 100 ML IVPB ONE (13:00)
[2023-06-18] MEDS ORDERED: VANCOMYCIN PREMIX 1.5 GM 1,500 MG/300 ML BAG IVPB ONE (13:00)
[2023-06-18] MEDS ORDERED: VANCOMYCIN HCL 1,500 MG in DEXTROSE 5%-WATER - 250 ML IVPB SCH ×2 (17:00→22:00)
[2023-06-18] MEDS: ATORVASTATIN CA 10 MG TABLET (FP) PO SCH (22:22)
[2023-06-19] MEDS ORDERED: VANCOMYCIN PREMIX 1.5 GM 1,500 MG/300 ML BAG IVPB ONE (03:00)
[2023-06-19] MEDS: GABAPENTIN 100 MG CAPSULE PO SCH ×3 (05:18→22:01)
[2023-06-19 09:41] LABS: HEMOGLOBIN 8.6 GM/dL (11.7-16.9); MCH 31.6 pg (25.7-33.7); MCHC 33.2 g/dl (32.0-35.9); MEAN CELL VOLUME 95.4 fl (80-96); MEAN PLT VOLUME 6.3 fl (7.5-11.1); PLATELET COUNT 520 10^3/uL (134-434); RBC 2.73 M/mm3 (4.00-5.60); RDW 15.4 % (11.9-15.9)
[2023-06-19 10:01] LABS: POTASSIUM 4.6 mmol/L (3.5-5.1)
[2023-06-19] MEDS: ALLOPURINOL 100 MG TABLET (FP) PO SCH ×2 (10:05→22:01)
[2023-06-19] MEDS: CEFTRIAXONE 2 GM in DEXTROSE 5%-WATER - 50 ML IVPB SCH (10:05)
[2023-06-19] MEDS: NICOTINE 7 MG/24 HOURS TOPICAL PATCH TD SCH (10:06)
[2023-06-19] MEDS: FENOFIBRIC ACID 45 MG CAP PO SCH (10:08)
[2023-06-19 10:11] LABS: ALBUMIN 2.5 g/dl (3.4-5.0); BLOOD UREA NITROGEN 22.5 mg/dL (7-18); CALCIUM 8.6 mg/dL (8.5-10.1); MAGNESIUM 2.1 mg/dL (1.8-2.4)
[2023-06-19 10:14] LABS: PHOSPHOROUS 3.6 mg/dL (2.5-4.9)
[2023-06-19 10:15] LABS: BILIRUBIN,TOTAL 0.3 mg/dL (0.2-1)
[2023-06-19 10:16] LABS: TOT PROT 7.2 g/dl (6.4-8.2)
[2023-06-19] MEDS ORDERED: ENOXAPARIN NA (PORCINE) 40 MG/0.4 ML DISP.SYRIN SQ ONE (13:37)
[2023-06-19] MEDS: ATORVASTATIN CA 10 MG TABLET (FP) PO SCH (22:00)
[2023-06-20] MEDS: GABAPENTIN 100 MG CAPSULE PO SCH ×3 (05:42→21:46)
[2023-06-20] MEDS ORDERED: traMADol HCL 50 MG TABLET PO PRN (08:36)
[2023-06-20] MEDS: FENOFIBRIC ACID 45 MG CAP PO SCH (09:20)
[2023-06-20] MEDS: ALLOPURINOL 100 MG TABLET (FP) PO SCH ×2 (09:20→21:46)
[2023-06-20] MEDS: NICOTINE 7 MG/24 HOURS TOPICAL PATCH TD SCH (09:22)
[2023-06-20 10:11] LABS: BASO % 0.6 % (0-2.0); EOS % 1.7 % (0-4.5); HEMATOCRIT 23.4 % (35.4-49); HEMOGLOBIN 7.7 GM/dL (11.7-16.9); LYMPH % 14.8 % (8-40); MCH 31.6 pg (25.7-33.7); MCHC 32.9 g/dl (32.0-35.9); MEAN PLT VOLUME 6.2 fl (7.5-11.1); MONO % 8.2 % (3.8-10.2); NEUT % 74.7 % (42.8-82.8); PLATELET COUNT 511 10^3/uL (134-434); RBC 2.44 M/mm3 (4.00-5.60); RDW 15.5 % (11.9-15.9); WHITE BLOOD COUNT 9.9 K/mm3 (4.0-10.0)
[2023-06-20] MEDS ORDERED: FENTANYL CITRATE/PF 50 MCG/ML VIAL ONE (10:36)
[2023-06-20] MEDS ORDERED: MIDAZOLAM HCL 2 MG/2 ML SINGLE DOSE VIAL ONE (10:36)
[2023-06-20] MEDS ORDERED: SODIUM CHLORIDE 500 ML IV SCH (10:55)
[2023-06-20] MEDS ORDERED: MIDAZOLAM HCL 2 MG/2 ML SINGLE DOSE VIAL IVPUSH ONE (11:00)
[2023-06-20] MEDS ORDERED: FENTANYL CITRATE/PF 50 MCG/ML VIAL IVPUSH ONE ×2 (11:00→11:20)
[2023-06-20 11:17] LABS: POTASSIUM 4.4 mmol/L (3.5-5.1)
[2023-06-20 11:27] LABS: ALBUMIN 2.4 g/dl (3.4-5.0); CALCIUM 8.6 mg/dL (8.5-10.1)
[2023-06-20 11:28] LABS: BLOOD UREA NITROGEN 23.5 mg/dL (7-18)
[2023-06-20 11:31] LABS: CREATININE 0.8 mg/dL (0.55-1.3)
[2023-06-20 11:33] LABS: BILIRUBIN,TOTAL 0.4 mg/dL (0.2-1); TOT PROT 6.6 g/dl (6.4-8.2)
[2023-06-20] MEDS ORDERED: VANCOMYCIN HCL 1,500 MG in DEXTROSE 5%-WATER - 250 ML IVPB SCH (15:00)
[2023-06-20] MEDS: POLYETHYLENE GLYCOL (HEALTHYLAX) 3350 17 GM PACKET PO SCH (15:27)
[2023-06-20] MEDS: VANCOMYCIN PREMIX 1.5 GM 1,500 MG/300 ML BAG IVPB SCH (17:31)
[2023-06-20] MEDS: ATORVASTATIN CA 10 MG TABLET (FP) PO SCH (21:46)
[2023-06-21] MEDS: VANCOMYCIN PREMIX 1.5 GM 1,500 MG/300 ML BAG IVPB SCH (05:00)
[2023-06-21] MEDS: GABAPENTIN 100 MG CAPSULE PO SCH ×3 (05:34→21:27)
[2023-06-21 09:29] LABS: HEMATOCRIT 27.4 % (35.4-49); HEMOGLOBIN 9.1 GM/dL (11.7-16.9); MCH 31.6 pg (25.7-33.7); MCHC 33.3 g/dl (32.0-35.9); MEAN CELL VOLUME 94.9 fl (80-96); MEAN PLT VOLUME 6.1 fl (7.5-11.1); PLATELET COUNT 507 10^3/uL (134-434); RBC 2.89 M/mm3 (4.00-5.60); RDW 15.7 % (11.9-15.9); WHITE BLOOD COUNT 10.2 K/mm3 (4.0-10.0)
[2023-06-21 09:43] LABS: POTASSIUM 4.3 mmol/L (3.5-5.1)
[2023-06-21 09:52] LABS: CALCIUM 8.9 mg/dL (8.5-10.1)
[2023-06-21 09:53] LABS: ALBUMIN 2.5 g/dl (3.4-5.0); BLOOD UREA NITROGEN 18.5 mg/dL (7-18); MAGNESIUM 1.8 mg/dL (1.8-2.4)
[2023-06-21 09:56] LABS: BILIRUBIN,TOTAL 0.3 mg/dL (0.2-1); CREATININE 0.8 mg/dL (0.55-1.3); PHOSPHOROUS 3.6 mg/dL (2.5-4.9)
[2023-06-21 09:57] LABS: TOT PROT 6.8 g/dl (6.4-8.2)
[2023-06-21] MEDS: CEFTRIAXONE 2 GM in DEXTROSE 5%-WATER - 50 ML IVPB SCH (09:59)
[2023-06-21] MEDS: ENOXAPARIN NA (PORCINE) 40 MG/0.4 ML DISP.SYRIN SQ SCH (10:06)
[2023-06-21] MEDS: ALLOPURINOL 100 MG TABLET (FP) PO SCH ×2 (10:09→21:27)
[2023-06-21] MEDS: POLYETHYLENE GLYCOL (HEALTHYLAX) 3350 17 GM PACKET PO SCH (10:10)
[2023-06-21] MEDS: FENOFIBRIC ACID 45 MG CAP PO SCH (10:10)
[2023-06-21] MEDS: NICOTINE 7 MG/24 HOURS TOPICAL PATCH TD SCH ×2 (10:10→10:15)
[2023-06-21] MEDS: ATORVASTATIN CA 10 MG TABLET (FP) PO SCH (21:27)
[2023-06-22] MEDS: GABAPENTIN 100 MG CAPSULE PO SCH ×3 (06:11→21:17)
[2023-06-22] MEDS: POLYETHYLENE GLYCOL (HEALTHYLAX) 3350 17 GM PACKET PO SCH ×2 (09:14→09:23)
[2023-06-22] MEDS: NICOTINE 7 MG/24 HOURS TOPICAL PATCH TD SCH (09:14)
[2023-06-22] MEDS: CEFTRIAXONE 2 GM in DEXTROSE 5%-WATER - 50 ML IVPB SCH (10:30)
[2023-06-22] MEDS: FENOFIBRIC ACID 45 MG CAP PO SCH (10:34)
[2023-06-22] MEDS: ALLOPURINOL 100 MG TABLET (FP) PO SCH ×2 (10:35→21:17)
[2023-06-22] MEDS: ENOXAPARIN NA (PORCINE) 40 MG/0.4 ML DISP.SYRIN SQ SCH (10:37)
[2023-06-22 10:46] LABS: HEMATOCRIT 25.3 % (35.4-49); HEMOGLOBIN 8.6 GM/dL (11.7-16.9); MCH 32.3 pg (25.7-33.7); MCHC 34.1 g/dl (32.0-35.9); MEAN CELL VOLUME 94.7 fl (80-96); MEAN PLT VOLUME 6.2 fl (7.5-11.1); PLATELET COUNT 476 10^3/uL (134-434); RBC 2.67 M/mm3 (4.00-5.60); RDW 15.8 % (11.9-15.9); WHITE BLOOD COUNT 9.4 K/mm3 (4.0-10.0)
[2023-06-22 10:58] LABS: POTASSIUM 4.3 mmol/L (3.5-5.1)
[2023-06-22 11:00] LABS: ALBUMIN 2.5 g/dl (3.4-5.0); CALCIUM 8.5 mg/dL (8.5-10.1); MAGNESIUM 1.8 mg/dL (1.8-2.4)
[2023-06-22 11:01] LABS: BLOOD UREA NITROGEN 18.5 mg/dL (7-18)
[2023-06-22 11:03] LABS: CREATININE 0.8 mg/dL (0.55-1.3); PHOSPHOROUS 2.8 mg/dL (2.5-4.9)
[2023-06-22 11:05] LABS: BILIRUBIN,TOTAL 0.2 mg/dL (0.2-1); TOT PROT 6.5 g/dl (6.4-8.2)
[2023-06-22] MEDS: PIPERACILLIN/TAZOB 3.375 GM 3.375 GM in DEXTROSE 5%-WATER - 50 ML IVPB SCH ×2 (13:23→17:44)
[2023-06-22] MEDS: ATORVASTATIN CA 10 MG TABLET (FP) PO SCH (21:17)
[2023-06-23] MEDS: PIPERACILLIN/TAZOB 3.375 GM 3.375 GM in DEXTROSE 5%-WATER - 50 ML IVPB SCH ×3 (02:44→17:01)
[2023-06-23] MEDS: GABAPENTIN 100 MG CAPSULE PO SCH ×2 (06:21→13:32)
[2023-06-23] MEDS: ENOXAPARIN NA (PORCINE) 40 MG/0.4 ML DISP.SYRIN SQ SCH (09:59)
[2023-06-23] MEDS: ALLOPURINOL 100 MG TABLET (FP) PO SCH ×2 (10:00→21:47)
[2023-06-23] MEDS: FENOFIBRIC ACID 45 MG CAP PO SCH (10:01)
[2023-06-23] MEDS: NICOTINE 7 MG/24 HOURS TOPICAL PATCH TD SCH ×2 (10:01→10:08)
[2023-06-23] MEDS: POLYETHYLENE GLYCOL (HEALTHYLAX) 3350 17 GM PACKET PO SCH (10:02)
[2023-06-23 10:21] LABS: HEMATOCRIT 25.6 % (35.4-49); HEMOGLOBIN 8.7 GM/dL (11.7-16.9); MCH 32.2 pg (25.7-33.7); MCHC 33.8 g/dl (32.0-35.9); MEAN CELL VOLUME 95.2 fl (80-96); MEAN PLT VOLUME 6.2 fl (7.5-11.1); PLATELET COUNT 471 10^3/uL (134-434); RBC 2.69 M/mm3 (4.00-5.60); RDW 15.7 % (11.9-15.9); WHITE BLOOD COUNT 8.5 K/mm3 (4.0-10.0)
[2023-06-23 10:38] LABS: POTASSIUM 4.2 mmol/L (3.5-5.1)
[2023-06-23 10:47] LABS: ALBUMIN 2.4 g/dl (3.4-5.0); BLOOD UREA NITROGEN 17.4 mg/dL (7-18); CALCIUM 8.6 mg/dL (8.5-10.1); MAGNESIUM 1.9 mg/dL (1.8-2.4)
[2023-06-23 10:50] LABS: CREATININE 0.9 mg/dL (0.55-1.3); PHOSPHOROUS 3.1 mg/dL (2.5-4.9)
[2023-06-23 10:51] LABS: BILIRUBIN,TOTAL 0.3 mg/dL (0.2-1)
[2023-06-23 10:52] LABS: TOT PROT 6.6 g/dl (6.4-8.2)
[2023-06-23] MEDS: GABAPENTIN 300 MG CAPSULE PO SCH (21:47)
[2023-06-23] MEDS: ATORVASTATIN CA 10 MG TABLET (FP) PO SCH (21:47)
[2023-06-24] MEDS: PIPERACILLIN/TAZOB 3.375 GM 3.375 GM in DEXTROSE 5%-WATER - 50 ML IVPB SCH ×3 (02:39→17:13)
[2023-06-24] MEDS: GABAPENTIN 300 MG CAPSULE PO SCH ×3 (06:05→21:15)
[2023-06-24] MEDS: POLYETHYLENE GLYCOL (HEALTHYLAX) 3350 17 GM PACKET PO SCH (09:49)
[2023-06-24] MEDS: NICOTINE 7 MG/24 HOURS TOPICAL PATCH TD SCH (09:49)
[2023-06-24] MEDS: ENOXAPARIN NA (PORCINE) 40 MG/0.4 ML DISP.SYRIN SQ SCH (09:49)
[2023-06-24 09:50] LABS: HEMATOCRIT 24.6 % (35.4-49); HEMOGLOBIN 8.5 GM/dL (11.7-16.9); MCH 32.3 pg (25.7-33.7); MCHC 34.5 g/dl (32.0-35.9); MEAN CELL VOLUME 93.8 fl (80-96); MEAN PLT VOLUME 6.2 fl (7.5-11.1); PLATELET COUNT 454 10^3/uL (134-434); RBC 2.62 M/mm3 (4.00-5.60); RDW 15.8 % (11.9-15.9); WHITE BLOOD COUNT 7.8 K/mm3 (4.0-10.0)
[2023-06-24] MEDS: ALLOPURINOL 100 MG TABLET (FP) PO SCH ×2 (09:50→21:15)
[2023-06-24] MEDS: FENOFIBRIC ACID 45 MG CAP PO SCH (09:52)
[2023-06-24 09:54] LABS: POTASSIUM 4.3 mmol/L (3.5-5.1)
[2023-06-24 10:01] LABS: TOT PROT 6.5 g/dl (6.4-8.2)
[2023-06-24 10:02] LABS: BLOOD UREA NITROGEN 16.6 mg/dL (7-18); PHOSPHOROUS 3.1 mg/dL (2.5-4.9)
[2023-06-24 10:03] LABS: ALBUMIN 2.4 g/dl (3.4-5.0)
[2023-06-24 10:04] LABS: BILIRUBIN,TOTAL 0.3 mg/dL (0.2-1); CALCIUM 8.6 mg/dL (8.5-10.1)
[2023-06-24] MEDS: ACETAMINOPHEN 325 MG TABLET (FP) PO SCH (18:48)
[2023-06-24] MEDS: traMADol HCL 50 MG TABLET PO PRN (21:15)
[2023-06-24] MEDS: ATORVASTATIN CA 10 MG TABLET (FP) PO SCH (21:16)
[2023-06-25] MEDS: ACETAMINOPHEN 325 MG TABLET (FP) PO SCH ×3 (02:30→18:15)
[2023-06-25] MEDS: PIPERACILLIN/TAZOB 4.5 GM 4.5 GM in DEXTROSE 5%-WATER 100 ML IVPB SCH ×3 (02:30→17:26)
[2023-06-25] MEDS: GABAPENTIN 300 MG CAPSULE PO SCH ×3 (05:54→21:26)
[2023-06-25 09:37] LABS: HEMATOCRIT 25.6 % (35.4-49); HEMOGLOBIN 8.9 GM/dL (11.7-16.9); MCH 32.3 pg (25.7-33.7); MCHC 34.8 g/dl (32.0-35.9); MEAN CELL VOLUME 92.8 fl (80-96); MEAN PLT VOLUME 6.2 fl (7.5-11.1); PLATELET COUNT 491 10^3/uL (134-434); RBC 2.76 M/mm3 (4.00-5.60); RDW 15.8 % (11.9-15.9)
[2023-06-25] MEDS: POLYETHYLENE GLYCOL (HEALTHYLAX) 3350 17 GM PACKET PO SCH ×2 (09:52→10:01)
[2023-06-25] MEDS: FENOFIBRIC ACID 45 MG CAP PO SCH (09:53)
[2023-06-25] MEDS: ENOXAPARIN NA (PORCINE) 40 MG/0.4 ML DISP.SYRIN SQ SCH (09:53)
[2023-06-25] MEDS: NICOTINE 7 MG/24 HOURS TOPICAL PATCH TD SCH (09:53)
[2023-06-25] MEDS: ALLOPURINOL 100 MG TABLET (FP) PO SCH ×2 (09:54→21:26)
[2023-06-25 09:55] LABS: POTASSIUM 4.6 mmol/L (3.5-5.1)
[2023-06-25 09:59] LABS: CALCIUM 8.8 mg/dL (8.5-10.1)
[2023-06-25 10:00] LABS: ALBUMIN 2.5 g/dl (3.4-5.0)
[2023-06-25 10:03] LABS: CREATININE 0.9 mg/dL (0.55-1.3)
[2023-06-25 10:05] LABS: BILIRUBIN,TOTAL 0.2 mg/dL (0.2-1); TOT PROT 6.8 g/dl (6.4-8.2)
[2023-06-25 10:07] LABS: BLOOD UREA NITROGEN 14.6 mg/dL (7-18)
[2023-06-25] MEDS: ATORVASTATIN CA 10 MG TABLET (FP) PO SCH (21:26)
[2023-06-26] MEDS: PIPERACILLIN/TAZOB 4.5 GM 4.5 GM in DEXTROSE 5%-WATER 100 ML IVPB SCH ×3 (02:31→17:19)
[2023-06-26] MEDS: ACETAMINOPHEN 325 MG TABLET (FP) PO SCH ×3 (02:32→18:44)
[2023-06-26] MEDS: GABAPENTIN 300 MG CAPSULE PO SCH ×3 (05:51→22:17)
[2023-06-26] MEDS: ALLOPURINOL 100 MG TABLET (FP) PO SCH ×2 (09:10→22:18)
[2023-06-26] MEDS: FENOFIBRIC ACID 45 MG CAP PO SCH (09:10)
[2023-06-26] MEDS: ENOXAPARIN NA (PORCINE) 40 MG/0.4 ML DISP.SYRIN SQ SCH (09:15)
[2023-06-26] MEDS: NICOTINE 7 MG/24 HOURS TOPICAL PATCH TD SCH (09:16)
[2023-06-26] MEDS: POLYETHYLENE GLYCOL (HEALTHYLAX) 3350 17 GM PACKET PO SCH (09:16)
[2023-06-26] MEDS ORDERED: CYCLOBENZAPRINE HCL 5 MG TABLET PO ONE (10:46)
[2023-06-26] MEDS ORDERED: HYDROmorphone HCl 2 MG/ML VIAL IVPB ONE (11:15)
[2023-06-26] MEDS ORDERED: KETOROLAC TROMETHAMINE 15 MG/ML VIAL IVPUSH ONE (11:15)
[2023-06-26] MEDS: ATORVASTATIN CA 10 MG TABLET (FP) PO SCH (22:18)
[2023-06-26] MEDS: traMADol HCL 50 MG TABLET PO PRN (22:21)
[2023-06-27] MEDS: ACETAMINOPHEN 325 MG TABLET (FP) PO SCH ×3 (02:14→18:38)
[2023-06-27] MEDS: PIPERACILLIN/TAZOB 4.5 GM 4.5 GM in DEXTROSE 5%-WATER 100 ML IVPB SCH ×3 (02:14→17:32)
[2023-06-27] MEDS: GABAPENTIN 300 MG CAPSULE PO SCH ×2 (06:27→13:16)
[2023-06-27 08:59] LABS: HEMATOCRIT 25.7 % (35.4-49); HEMOGLOBIN 8.7 GM/dL (11.7-16.9); MCH 31.5 pg (25.7-33.7); MCHC 33.9 g/dl (32.0-35.9); MEAN CELL VOLUME 93.1 fl (80-96); MEAN PLT VOLUME 6.2 fl (7.5-11.1); PLATELET COUNT 466 10^3/uL (134-434); RBC 2.76 M/mm3 (4.00-5.60); WHITE BLOOD COUNT 7.9 K/mm3 (4.0-10.0)
[2023-06-27 09:04] LABS: POTASSIUM 4.6 mmol/L (3.5-5.1)
[2023-06-27 09:07] LABS: CALCIUM 8.8 mg/dL (8.5-10.1)
[2023-06-27 09:08] LABS: ALBUMIN 2.5 g/dl (3.4-5.0); BLOOD UREA NITROGEN 18.8 mg/dL (7-18)
[2023-06-27 09:11] LABS: CREATININE 0.9 mg/dL (0.55-1.3)
[2023-06-27 09:12] LABS: BILIRUBIN,TOTAL 0.2 mg/dL (0.2-1); TOT PROT 6.7 g/dl (6.4-8.2)
[2023-06-27] MEDS: ENOXAPARIN NA (PORCINE) 40 MG/0.4 ML DISP.SYRIN SQ SCH (09:18)
[2023-06-27] MEDS: ALLOPURINOL 100 MG TABLET (FP) PO SCH ×2 (09:18→21:41)
[2023-06-27] MEDS: FENOFIBRIC ACID 45 MG CAP PO SCH (09:19)
[2023-06-27] MEDS: NICOTINE 7 MG/24 HOURS TOPICAL PATCH TD SCH (09:21)
[2023-06-27] MEDS: POLYETHYLENE GLYCOL (HEALTHYLAX) 3350 17 GM PACKET PO SCH (09:21)
[2023-06-27] MEDS ORDERED: GABAPENTIN 300 MG CAPSULE PO SCH (14:04)
[2023-06-27] MEDS ORDERED: oxyCODONE HCL 5 MG TABLET PO PRN ×2 (14:19→16:19)
[2023-06-27] MEDS: ATORVASTATIN CA 10 MG TABLET (FP) PO SCH (21:40)
[2023-06-27] MEDS: GABAPENTIN 400 MG CAPSULE PO SCH (21:47)
[2023-06-28] MEDS: oxyCODONE HCL 5 MG TABLET PO PRN ×2 (00:27→13:24)
[2023-06-28] MEDS: PIPERACILLIN/TAZOB 4.5 GM 4.5 GM in DEXTROSE 5%-WATER 100 ML IVPB SCH ×2 (00:59→10:01)
[2023-06-28] MEDS: ACETAMINOPHEN 325 MG TABLET (FP) PO SCH ×2 (02:30→10:02)
[2023-06-28] MEDS: GABAPENTIN 400 MG CAPSULE PO SCH ×2 (06:07→13:24)
[2023-06-28 08:52] VITALS: BP 123/67; PULSE 82; RESP 17; TEMP 98.1
[2023-06-28] MEDS: ALLOPURINOL 100 MG TABLET (FP) PO SCH (10:03)
[2023-06-28] MEDS: NICOTINE 7 MG/24 HOURS TOPICAL PATCH TD SCH (10:04)
[2023-06-28] MEDS: POLYETHYLENE GLYCOL (HEALTHYLAX) 3350 17 GM PACKET PO SCH (10:04)
[2023-06-28] MEDS: FENOFIBRIC ACID 45 MG CAP PO SCH (10:09)
== END 2023-06-28 15:42 | DRG 552 ==
LOC: JER 15:42 → JERBED 20:17 → J6S 06-16 04:44 → OBSVTOIN 06-16 10:15
PROVIDERS: ADMIT Internal Medicine; ATTEND Internal Medicine
PROC: 0SB23ZX Excision of Lumbar Vertebral Disc, Percutaneous Approach, Diagnostic (ICD-10-PCS; principal; 2023-06-20)
PROC: 02HV33Z Insertion of Infusion Device into Superior Vena Cava, Percutaneous Approach (ICD-10-PCS; 2023-06-27)
PROC: B518ZZA Fluoroscopy of Superior Vena Cava, Guidance (ICD-10-PCS; 2023-06-27)
DX: M46.46 Discitis, unspecified, lumbar region (principal); M46.26 Osteomyelitis of vertebra, lumbar region; I10 Essential (primary) hypertension; E78.5 Hyperlipidemia, unspecified; M10.9 Gout, unspecified; F10.20 Alcohol dependence, uncomplicated; D75.839 Thrombocytosis, unspecified; D72.829 Elevated white blood cell count, unspecified; R26.2 Difficulty in walking, not elsewhere classified; M54.16 Radiculopathy, lumbar region; B96.5 Pseudomonas (aeruginosa) (mallei) (pseudomallei) as the cause of diseases classified elsewhere; B95.2 Enterococcus as the cause of diseases classified elsewhere; D64.9 Anemia, unspecified; N28.1 Cyst of kidney, acquired; K59.00 Constipation, unspecified; M17.11 Unilateral primary osteoarthritis, right knee; F19.10 Other psychoactive substance abuse, uncomplicated
CPT/HCPCS: 20220; 36415; 36569; 70450-TC; 71045-TC-FY; 72100-TC-FY; 72131-TC; 72148-TC; 72149-TC; 73562-TC-RT-FY; 76775-TC; 77012-TC; 80053; 81003; 82140; 82272; 82550; 82607; 82652; 82728; 82746; 83540; 83550; 83735; 84100; 85025; 85027; 85045; 85610; 85651; 86140; 86593; 86780; 86803; 87040; 87070; 87075; 87086; 87102; 87116; 87186; 87205; 87206; 87210; 87635; 87811; 88305-TC; 93005; 93010; 97116-GP; 97162-GP; 99281-25; 99285-25; G0378; G0480; J0475; J1100; J2315